=== PATIENT | female | born 1950 | race Caucasian/White ===

== ENCOUNTER 2020-04-08 06:37 | Outpatient (CLI) | payer MEDICARE | END 2020-04-08 23:59 | disposition home or self-care (01) | LOC: CVU 06:37 | PROVIDERS: ATTEND Family Medicine | DX: I70.211 Atherosclerosis of native arteries of extremities with intermittent claudication, right leg (principal); I70.212 Atherosclerosis of native arteries of extremities with intermittent claudication, left leg | CPT/HCPCS: 93922 ==